=== PATIENT | male | born 1945 | race Caucasian/White ===

== ENCOUNTER 2016-11-11 06:11 | Outpatient (CLI) | payer MEDICARE, OTHER ==
[~2016-11-11] VITALS: Ht 185.4 cm; Wt 89.5 kg
--- NOTE | ~2016-11-11 | CATH ---
Cardiac Diagnostic Report Demographics Patient Name HAILEY Causey Gender Male Date of 1945 Age 71 year(s) Patient Number [id number] Date of Study 11/11/2016 Visit Number [id number] Room Number G6399 [place] [id number] Ht 185.42 cm Wt 95 kg Referring Renae Saunders MD Primary Physician Physician Performing Renae Saunders MD Secondary Physician Physician Diagnostic Renae Saunders MD Assisting Physician Physician Interventional Physician Sander And Buffer Physician Findings and Conclusions Procedure Description The patient was brought to the diagnostic cardiac catheterization-EP laboratory in the fasting, non-sedated state. Informed consent was obtained in the written and verbal form after the risks and benefits were explained. The patient had no further questions and agreed to proceed. The planned puncture-incision site(s) were shaved and prepped with ChloraPrep and draped in the usual sterile manner. Conscious sedation, supplemental oxygen, and pain control medications were delivered by a registered nurse under physician guidance. Surface ECG rhythm, blood pressure measurement, and pulse oximetry were monitored throughout the procedure. Arterial access. The access site was infiltrated with lidocaine. The vessel was entered with the Seldinger technique. A sheath was advanced into the vessel and used for catheter placement. Selective left coronary angiography. A catheter was advanced into the left coronary vessel ostium under Fluoroscopic guidance. Contrast was injected by hand. Images were obtained in multiple projections. Selective right coronary angiography. A catheter was advanced into the right coronary vessel ostium under fluoroscopic guidance. Contrast was injected by hand. Images were obtained in multiple projections. Left heart catheterization with ventriculography. A catheter was advanced across the aortic valve to the left ventricle under fluoroscopic guidance. Resting hemodynamics were obtained. With the catheter at the left ventricular apex, contrast was injected. Images were obtained in TAJIK projections. Post-ventriculography LV pressure was obtained. The catheter was gradually withdrawn into the aorta with continuous pressure recording. Arterial artery hemostasis was achieved. The patient was transferred to a regular nursing floor via cart accompanied by a nurse. The patient left the laboratory in stable condition. Procedure Procedure Type Diagnostic procedure:Ventriculogram:, Left, Angiography:, Coronary Angios w/[facility] The procedure was explained in detail to the patient. Risks, complications and alternative treatments were reviewed. Written consent was obtained. Medications Reviewed with Patient prior to Procedure. Angiographic Findings Dominance: Right Cardiac Arteries and Lesion Findings LMCA: Abnormal.separate ostia Procedure Data Procedure Date Date: 11/11/2016Start: 08:31 AM Entry Locations - Retrograde Percutaneous access was performed through the Right Femoral artery (Primary location). A 6 Fr sheath was inserted. Hemostasis was successfully obtained using Angio-Seal STS PLUS ([facility] [facility]). Closure Comments: by Sara Romero. Procedure Medications Order and Administration + + +-------+------+ !Time !Medication !Dosage !Route ! + + +-------+------+ 11/11/2016 08:28 AM !Fentanyl !50 mcg !I.V. ! + + +-------+------11/11/2016 08:28 AM !Versed !1 mg ! ! + + +-------+------11/11/2016 08:32 AM !Versed !1 mg ! ! + + +-------+------+ !11/11/2016 08:45 AM !Fentanyl !50 mcg !I.V. ! + + +-------+------+ Devices Used - A6 Fr. BS JL 4 Diag. Catheterwas used for:Left coronary angiography. - A6 Fr. BS JR 4 Diag. Catheterwas used for:Right coronary angiography. - A6 Fr. BS Angled Pigtail Diag. Catheterwas used for:LV Pressures. Contrast Material - Isovue 04709 ml Fluoroscopy Time: Diagnostic: 3:42 minutes. Total: 3:42 minutes. Fluoroscopy Dose: Diagnostic: 864 mGy. Total: 864 mGy. Estimated Blood Loss: 5 ml. Medical History Risk Factors The patient risk factors include:hypertension. Admission Data Admission Date: 11/11/2016 Admission Time: 06:11 AM Arrival Date: 11/11/2016 Arrival Time: 12:00 AM Admit Source: Other Insurance Payors: Medicare. Admission Medications + +------+------+ + + + + !Medication !Dosage!Times !Last !Last !Administered !Comments ! ! ! !Per !Delivery !Delivery ! ! ! ! ! !Day !Date !Time ! ! ! + +------+------+ + + + + !Beta ! ! ! ! ! ! ! !Roverto ! ! ! ! ! ! ! !(any) ! ! ! ! ! ! ! + +------+------+ + + + + !Aspirin ! ! ! ! ! ! ! !(any) ! ! ! ! ! ! ! + +------+------+ + + + + Clinical Evaluation Leading to Procedure - Anti-anginal medications were prescribed during the past two weeks. The medication is: Beta Blockers. 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 Hemodynamics Condition: Rest O2 Consumption: Estimated: 250.59Heart Rate: 67 bpm Pressures (mmHg) +-----+ + !Site !Pressure ! +-----+ + !AO !155/76 (98) ! +-----+ + !LV !171/5 ,12 ! +-----+ + !LV !161/4 ,12 ! +-----+ + !LV !159/6 ,12 ! +-----+ + !LV !126/78 ,56 ! +-----+ + !LV !158/4 ,11 ! +-----+ + !LV !160/5 ,11 ! +-----+ + !AO !166/84 (115) ! +-----+ + !LV !160/4 ,10 ! +-----+ + Valve Gradients and Areas + +---------+---------+---------+ +---------+ + !Valve !Peak !Mean !Area !Index !Flow !Source ! + +---------+---------+---------+ +---------+ + !Aortic !0 !0 ! ! ! ! ! + +---------+---------+---------+ +---------+ + !Aortic !0 !0 ! ! ! ! ! + +---------+---------+---------+ +---------+ + Shunts Oxygen Values O2 Capacity 208.08 O2 Consumption 250.59 Signatures dtt: Chip Macdonald (cardio) dtd: 11/11/16 0831 Physician Self Edit
[~2016-11-11 06:11] MED LIST: ACID REDUCER20 MG PO; ADVIL200 MG PO; ASPIRIN EC81 MG PO; SAW PALMETTO450 MG PO; TOPROL XL100 MG PO; ULTRAM50 MG PO
[2016-11-11 06:57] LABS: BASOPHIL % 0.6 %; EOSINOPHIL # 0.2 K/uL (0.0-0.5); EOSINOPHIL % 3.2 %; HEMATOCRIT 42.3 % (37.0-53.0); HEMOGLOBIN 15.3 g/dL (11.0-16.0); IMMATURE GRANULOCYTE % 0.2 %; LYMPHOCYTE # 2.4 K/uL (0.8-4.0); LYMPHOCYTE % 36.3 %; MCH 34.5 pg (27.0-34.0); MCHC 36.2 gm/dL (32.0-36.5); MCV 95.3 fl (83.0-98.0); MONOCYTE # 0.8 K/uL (0.0-1.0); MONOCYTE % 11.6 %; NEUTROPHIL # (ANC) 3.2 K/uL (1.4-9.0); NEUTROPHIL % 48.1 %; NRBC % 0 /100WBC (0-0.00); PLATELET COUNT 191 K/uL (150-450); RBC 4.44 M/uL (3.50-5.50); RDW-CV 11.1 % (11.9-14.6); WBC 6.7 K/uL (4.0-11.0)
[2016-11-11 07:13] LABS: ALBUMIN 3.8 gm/dL (3.5-5.0); ANION GAP 10.8 (10.0-19.0); CALCIUM 8.7 mg/dL (8.5-10.5); CREATININE 1.1 mg/dL (0.6-1.3); POTASSIUM 3.8 mMol/L (3.7-5.1); TOTAL BILIRUBIN 0.7 mg/dL (0.0-1.5); TOTAL PROTEIN 7.6 g/dL (6.0-8.4)
[2016-11-11] MEDS ORDERED: ZESTRIL2.5 MG PO (09:29)
== END 2016-11-11 12:10 | disposition disaster alternative care site (69) ==
LOC: GPOC 06:11 → GPCU 06:11 → GPOC 10:00
PROVIDERS: Internal Medicine Interventional Cardiology
PROC: 4A023N7 Measurement of Cardiac Sampling and Pressure, Left Heart, Percutaneous Approach (ICD-10-PCS; principal; 2016-11-11)
PROC: B216YZZ Fluoroscopy of Right and Left Heart using Other Contrast (ICD-10-PCS; 2016-11-11)
DX: R94.39 Abnormal result of other cardiovascular function study (principal)
CPT/HCPCS: C1760; J1644; J2001; J2250; J3010